=== PATIENT | female | born 1985 | race African-American/Black ===

== ENCOUNTER 2020-11-24 15:37 | Emergency (ER) | payer MEDICAID ==
[~2020-11-24] VITALS: Ht 170.2 cm; Wt 100.0 kg
[~2020-11-24 15:37] MED LIST: ALPR-339; DIVA-75; HYDR-4134; HYDR25TA; [UNRECOGNIZED DRUG - CODE]
[2020-11-24 15:56] VITALS: BP 131/87
[2020-11-24] MEDS ORDERED: ACETAMINOPHEN WITH CODEINE 300/30MG TABLET PO ONE (17:15)
[2020-11-24] MEDS ORDERED: IBUP-2029 MT (18:06)
[2020-11-24] MEDS ORDERED: METH-773 MT (18:06)
== END 2020-11-24 18:50 | disposition home or self-care (01) ==
LOC: ER 15:37
DX: M54.6 Pain in thoracic spine (principal); R07.89 Other chest pain; Z98.890 Other specified postprocedural states; Z79.899 Other long term (current) drug therapy
CPT/HCPCS: 71045; 72070; 81025; 99284

== ENCOUNTER 2020-12-14 05:42 | Emergency (ER) | payer MEDICAID ==
[~2020-12-14] VITALS: Ht 162.6 cm; Wt 99.5 kg
[~2020-12-14 05:42] MED LIST changes: +IBUP-2029 MT; +METH-773 MT; -[UNRECOGNIZED DRUG - CODE]
[2020-12-14] MEDS ORDERED: KETOROLAC 15MG/ML VIAL IV ONE (07:30)
[2020-12-14 07:50] LABS: BASOPHILS % 0.4 % (0.0-2.0); EOSINOPHILS % 1.4 % (0.0-5.0); HEMOGLOBIN. 14.3 g/dL (12.0-16.0); LYMPHOCYTES % 11.6 % (20.0-50.0); MEAN CORPUSCULAR HEMOGLOBIN 33.1 pg (28.0-32.0); MEAN CORPUSCULAR VOLUME 95.2 fL (81.0-99.0); MEAN PLATELET VOLUME 9.2 fl (7.4-10.4); NEUTROPHILS % 78.6 % (40.0-76.0); PLATELET 192 x1000/uL (130-400); RED BLOOD CELL COUNT 4.31 mill/uL (4.2-5.4); RED CELL DISTRIBUTION WIDTH 14.3 % (11.6-14.6)
[2020-12-14 07:55] LABS: CHLORIDE 110 mEq/L (98-107)
[2020-12-14 08:38] LABS: HCG SCREEN NEGATIVE
[2020-12-14 09:54] LABS: *AMPHETAMINES SCREEN URINE NEGATIVE (NEGATIVE); *BARBITURATES SCREEN URINE NEGATIVE (NEGATIVE); *BENZODIAZEPINES SCREEN URINE NEGATIVE (NEGATIVE)
[2020-12-14 09:55] LABS: METHADONE URINE SCREEN NEGATIVE (NEGATIVE); OPIATES URINE SCREEN NEGATIVE (NEGATIVE); PHENCYCLIDINE URINE SCREEN NEGATIVE (NEGATIVE)
[2020-12-14] MEDS ORDERED: HYDROCODONE/ACETAMINOPHEN 5/325MG TABLET PO ONE (10:00)
[2020-12-14] MEDS ORDERED: CLINDAMYCIN HCL 150MG CAPSULE PO ONE (10:00)
[2020-12-14 10:06] LABS: *COCAINE SCREEN URINE PRESUMTIVE POSITIVE (NEGATIVE); CANNABINOID URINE SCREEN PRESUMTIVE POSITIVE (NEGATIVE)
[2020-12-14] MEDS ORDERED: IOHEXOL-300 100 ML BOTTLE ONE (10:11)
[2020-12-14] MEDS ORDERED: HYDR-4346 MT (11:03)
[2020-12-14] MEDS ORDERED: CLIN300C12 MT (11:03)
[2020-12-14] MEDS ORDERED: IBUP-2029 MT (11:03)
[2020-12-14 11:30] VITALS: BP 150/97
[2020-12-14] MEDS ORDERED: ONDANSETRON HCL 4MG TABLET PO ONE (11:30)
[2020-12-14] MEDS ORDERED: ONDA4TAB5 MT (11:31)
[2020-12-14] MEDS ORDERED: SULF1TAB48 MT (22:06)
[2020-12-14] MEDS ORDERED: P50 MT (22:06)
[2020-12-14] MEDS ORDERED: CEPH500T MT (22:06)
== END 2020-12-14 13:00 | disposition home or self-care (01) ==
LOC: ER 05:42
DX: L03.211 Cellulitis of face (principal); K04.7 Periapical abscess without sinus; I10 Essential (primary) hypertension; R11.2 Nausea with vomiting, unspecified; F12.10 Cannabis abuse, uncomplicated; Z98.890 Other specified postprocedural states
CPT/HCPCS: 36415; 70487; 80053; 80305; 84703; 85025; 96374; 99285; J1885; Q0162; Q9967; Z7610

== ENCOUNTER 2020-12-14 20:28 | Emergency (ER) | payer MEDICAID ==
[~2020-12-14] VITALS: Ht 170.2 cm; Wt 82.0 kg
[~2020-12-14 20:28] MED LIST changes: +CLIN300C12 MT; +HYDR-4346 MT; +ONDA4TAB5 MT
[2020-12-14] MEDS: DIPHENHYDRAMINE 50MG/ML VIAL IV ONE (21:00)
[2020-12-14] MEDS: EPINEPHRINE 1:1000 1 MG/ML AMP IM ONE (21:00)
[2020-12-14] MEDS: METHYLPREDNISOLONE SOD SUCC 125 MG/2 ML VIAL IV ONE (21:00)
[2020-12-14 22:00] VITALS: BP 137/92
[2020-12-14] MEDS ORDERED: SULF1TAB48 MT (22:06)
[2020-12-14] MEDS ORDERED: P50 MT (22:06)
[2020-12-14] MEDS ORDERED: CEPH500T MT (22:06)
== END 2020-12-14 22:19 | disposition left against medical advice (07) ==
LOC: ER 21:07
DX: R22.0 Localized swelling, mass and lump, head (principal); L02.01 Cutaneous abscess of face; F12.10 Cannabis abuse, uncomplicated; Z98.890 Other specified postprocedural states; T36.8X5A Adverse effect of other systemic antibiotics, initial encounter; Y92.018 Other place in single-family (private) house as the place of occurrence of the external cause
CPT/HCPCS: 96372; 96374; 96375; 99284; J1200; J2930; J3490